=== PATIENT | female | born 1945 | race Caucasian/White ===

== ENCOUNTER 2016-09-16 09:10 | Emergency (ER) | payer BC, OTHER ==
[2016-09-16 09:20] VITALS: BP 175/89; BMI 33.3
--- NOTE | 2016-09-16 10:19 | DR.EXTPAIN ---
HPI - Time seen Time seen: 10:14 - PCP Primary Care Physician: ARELY - Complaint/Symptoms Chief Complaint Doctor Comments: Patient presents with complain of left foot pain for 1.5 weeks. She has been treated by her primary care physician with heat packs but w/o relief of pain. She states that she is on her feet eight hours daily working and she is unable to stand at this time. due to pain. Pain is sharp, duration 1.5 weeks, aggravated by pressure not relieved by present therapy Chief Complaint:: LEFT FOOT PAIN,DON'T KNOW WHAT HAPPENED. Self Treatment fo Chief Complaint: OTC AND PROPPPING UP - Source History Provided: Patient, Family Member - Mode of arrival Mode of Arrival: Ambulatory - Timing Onset of Chief Complaint: 09/10/16 PMH - PMH Past Medical History: Yes Past Medical History: Arthritis, CVA, Hypertension Past Surgical History: Yes Surgical History: Cholecystectomy, [employer]IST Surgery - Family History History of Family Medical Conditions: Yes Family Medical History: Cancer, Coronary Artery Disease, Heart Failure, Hypertension - Social History Does any household member use tobacco: Yes Alcohol Use: None Do you use any recreational Drugs:: No Lives With: Family Lives Where: Home - infectious screening In the last 2 months have you had wt loss of >10#?: NO Have you had fever, night sweats or hemotysis?: No Have you traveled outside the country in the last 6 months?: No Isolation: Standard ROS - Review of Systems Eyes: No Symptoms Reported ENTM: No Symptoms Reported Respiratoy: No Symptoms Reported Cardiovascular: No Symptoms Reported Gastrointestinal/Abdominal: No Symptoms Reported Genitourinary: No Symptoms Reported Neurological: No Symptoms Reported Musculoskeletal: Foot (left foot pain) Integumentary: No Symptoms Reported Hematologic/Lymphatic: No Symptoms Reported, See HPI Endocrine: No Symptoms Reported Psychiatric: No Symptoms Reported All Other Systems: Reviewed and Negative PE - Vital Signs Vitals: Temperature 98.1 F Pulse Rate 78 Respiratory Rate 20 Blood Pressure 175/89 O2 Sat by Pulse Oximetry 99 - General General Appearance: Alert, In No Apparent Distress - Head Head Exam: Normal Inspection, Atraumatic - Eyes Eye exam: Normal Appearance, PERRL, EOMI - ENT ENT Exam: Normal Exam, Normal Oropharynx - Neck Neck Exam: Normal Inspection, Full ROM - Chest Chest Inspection: Normal Inspection - Respiratory Respiratory Exam: Normal Lung Sounds Bilat Respiratory Exam: Bilateral Clear to Auscultation - Cardiovascular Cardiovascular Exam: Regular Rate, Normal Rhythm - Abdominal Exam Abdominal Exam: Normal Inspection, Normal Bowel Sounds Abdominal Tenderness: negative: RUQ, RLQ, LUQ, LLQ, Epigastrium, Suprapubic, Diffuse, Mild, Moderate, Severe, Other - Extremities Extremities Exam: Normal Inspection - Upper Extremities Shoulder Exam: Normal Inspection Arm Exam: Normal Inspection Elbow Exam: Normal Inspection Forearm Exam: Normal Inspection Hand Exam: Normal Inspection Neuromotor Exam: Normal Exam Neurosensory Exam: Normal Exam Hand Tendon Exam: Flexor Digitorium Profundus (Location) Upper Ext. Vascular Exam: Capillary Refill - Lower Extremities Hip/Pelvis Exam: Normal Inspection Upper Leg Exam: Normal Inspection Knee Exam: Normal Inspection Lower Leg Exam: Normal Inspection Ankle Exam: Normal Inspection Foot/Toe Exam: Tenderness (Lateral metarsalof left foot with swelling), Swelling Neurovascular/Tendon Exam: Normal Capillary Refill Gait Exam: Observed and Normal - Back Back Exam: Normal Inspection - Neurological Neurological Exam: Alert, Oriented X3, CN II-XII Intact - Psychiatric Psychiatric Exam: Normal Affect - Skin Skin Exam: Warm, Dry, Intact Type of Lesion: Rash Distribution: Generalized ROR - XRAY XRAY Interpreted by: Radiologist (Questionable cortical regularity along the neck of the distal 5th metatarsal bone which could represent a nondisplaced fracture or artifact. Recommend orthopedic followup. Moderate osteoarthritic changes throughout the digits which is most prominent along the 1st MTP joint with some mild soft tissue swelling just lateral to the joint. Mild soft tissue swelling and edema along the plantar aspect of the proximal foot.) - Diagnosis Discharge Problem: Osteoarthritis of ankle or foot Qualifiers: Laterality: left Qualified Code(s): M19.072 - Primary osteoarthritis, left ankle and foot - Discharge Plan Condition: Stable - Follow ups/Referrals Follow ups/Referrals: Nery MCGEE [Primary Care Provider] - 3 days - Instructions
[2016-09-16] MEDS ORDERED: TORADOL 60 MG VIAL IM ONE (10:22)
[2016-09-16] MEDS ORDERED: TORADOL 30 MG VIAL ONE (10:23)
--- NOTE | 2016-09-16 10:41 | RAD ---
HISTORY: Pain Study: Left foot series Comparison: None Findings: There is moderate joint space narrowing throughout the digits which is most prominent along the 1st MTP joint with soft tissue swelling lateral to the joint. There is some questionable subtle cortical regularity along the neck of the 5th metatarsal bone distally . The tarsal bones are intact. No ero sions are seen. There is mild soft tissue swelling along the plantar aspect of the proximal foot wit h no foreign body seen. No erosions are seen. IMPRESSION: Questionable cortical regularity along the neck of the distal 5th metatarsal bone which could repres ent a nondisplaced fracture or artifact. Recommend orthopedic followup. Moderate osteoarthritic changes throughout the digits which is most prominent along the 1st MTP join t with some mild soft tissue swelling just lateral to the joint. Mild soft tissue swelling and edema along the plantar aspect of the proximal foot . Reported By:
== END 2016-09-16 11:24 | disposition home or self-care (01) ==
LOC: ER 09:32
DX: M19.072 Primary osteoarthritis, left ankle and foot (principal); M79.89 Other specified soft tissue disorders
CPT/HCPCS: 29540; 73630; 96372; 99282; J1885

== ENCOUNTER 2016-12-12 00:46 | Emergency (ER) | payer BC, OTHER ==
[2016-12-12 00:51] VITALS: BP 157/90; BMI 33.8
[2016-12-12 01:18] LABS: BILIRUBIN,URINE NEGATIVE (NEGATIVE); BLOOD/HEMOGLOBIN,URINE 5+ (NEGATIVE); GLUCOSE, URINE NEGATIVE (NEGATIVE); KETONES,URINE NEGATIVE (NEGATIVE); LEUKOCYTE ESTERASE ,URINE 3+ (NEGATIVE); NITRITES,URINE POSITIVE (NEGATIVE); PH,URINE 6.5 (5.0 - 8.0); PROTEIN,URINE 3+ (NEGATIVE); UROBILINOGEN,URINE NORMAL (NORMAL)
--- NOTE | 2016-12-12 01:22 | DR.GENAD ---
HPI - PCP Primary Care Physician: ARELY ENAMORADO Comment HPI Comment: 70 y/o female complainig of dysuria, frequency and urgency for preceeding 7 days. She denies fever, chills or hematuria. She has no flank pain - Complaint/Symptoms Chief Complaint:: PT STATES, "I'VE BEEN HAVING TROULE WITH MY BLADDER FOR ABOUT 7 DAYS. I'M HAVING BURNING AND PRESSURE." Self Treatment fo Chief Complaint: OTC "URINARY RELIEF" - Nurses notes reviewed Nurses Notes Review: Yes - Source History Provided: Patient - Mode of Arrival Mode of Arrival: Ambulatory - Timing Onset of Chief Complaint: 12/05/16 PMH - PMH Past Medical History: Yes Past Medical History: Arthritis, CVA, Hypertension Past Surgical History: Yes Surgical History: Cholecystectomy, [employer] TEACHER Surgery - Family History History of Family Medical Conditions: Yes Family Medical History: Cancer, Coronary Artery Disease, Heart Failure, Hypertension - Social History Alcohol Use: None Do you use any recreational Drugs:: No Lives With: Alone Lives Where: Home - infectious screening In the last 2 months have you had wt loss of >10#?: NO Have you had fever, night sweats or hemotysis?: No Have you traveled outside the country in the last 6 months?: No Isolation: Standard ROS - Review of Systems Constitutional: No Symptoms Reported Eyes: No Symptoms Reported ENTM: No Symptoms Reported Respiratoy: No Symptoms Reported Cardiovascular: No Symptoms Reported Gastrointestinal/Abdominal: No Symptoms Reported Genitourinary: Dysuria, Frequency, Other (urgency) Neurological: No Symptoms Reported Musculoskeletal: No Symptoms Reported Integumentary: No Symptoms Reported Hematologic/Lymphatic: No Symptoms Reported Endocrine: No Symptoms Reported Psychiatric: No Symptoms Reported All Other Systems: Reviewed and Negative PE - Vital Signs Vitals: Temperature 97.9 F Pulse Rate 90 Respiratory Rate 20 Blood Pressure 157/90 O2 Sat by Pulse Oximetry 99 - General Limitations: No Limitations General Appearance: Alert, In No Apparent Distress - Head Head Exam: Normal Inspection - Eyes Eye exam: Normal Appearance, PERRL - ENT ENT Exam: Normal Exam External Ear Exam: Normal External Inspection - Neck Neck Exam: Normal Inspection, Full ROM - Chest Chest Inspection: Normal Inspection - Respiratory Respiratory Exam: Normal Lung Sounds Bilat - Cardiovascular Cardiovascular Exam: Regular Rate, Normal Rhythm - Abdominal Exam Abdominal Exam: Normal Inspection, Normal Bowel Sounds, Soft - Extremities Extremities Exam: Normal Inspection, Full ROM - Back Back Exam: Normal Inspection - Neurologic Neurological Exam: Alert, Oriented X3, CN II-XII Intact - Psychiatric Psychiatric Exam: Normal Affect, Normal Mood - Skin Skin Exam: Warm, Dry, Intact, Normal Color Course - Education/Counseling Education/Counseling: Patient Educated On: Treatment, Diagnosis, Needs for Follow Up ROR - Labs Reviewed Laboratory: Specimen Type Clean catch urine 12/12/16 01:08 Urine Color Yellow (YELLOW) 12/12/16 01:08 Urine Appearance Cloudy (CLEAR) 12/12/16 01:08 Urine pH 6.5 (5.0 - 8.0) 12/12/16 01:08 Ur Specific [place] 1.015 (1.000-1.030) 12/12/16 01:08 Urine Protein 3+ (NEGATIVE) 12/12/16 01:08 Urine Glucose (UA) Negative (NEGATIVE) 12/12/16 01:08 Urine Ketones Negative (NEGATIVE) 12/12/16 01:08 Urine Occult Blood 5+ (NEGATIVE) 12/12/16 01:08 Urine Nitrite Positive (NEGATIVE) 12/12/16 01:08 Urine Bilirubin Negative (NEGATIVE) 12/12/16 01:08 Urine Urobilinogen Normal (NORMAL) 12/12/16 01:08 Ur Leukocyte Esterase 3+ (NEGATIVE) 12/12/16 01:08 Urine RBC 30-40 /HPF (NEGATIVE) 12/12/16 01:08 Urine WBC Tntc /HPF (NEGATIVE) 12/12/16 01:08 Ur Squamous Epith Cells Negative /HPF (NEGATIVE) 12/12/16 01:08 Urine Bacteria 1+ /HPF (NEGATIVE) 12/12/16 01:08 Ur Culture Indicated? Yes/culture set up 12/12/16 01:08 - Diagnosis Discharge Problem: Lower urinary tract infection - Discharge Plan Disposition: HOME, SELF-CARE Condition: Stable - Follow ups/Referrals Follow ups/Referrals: Nery MCGEE [Primary Care Provider] - 3 days - Instructions
[2016-12-12 01:24] LABS: APPEARANCE,URINE CLOUDY (CLEAR); BACTERIA,URINE 1+ /HPF (NEGATIVE); COLOR,URINE YELLOW (YELLOW); RBC,URINE 30-40 /HPF (NEGATIVE); SQUAMOUS EPITHELIAL CELL,UR NEGATIVE /HPF (NEGATIVE)
[2016-12-12] MEDS ORDERED: PYRIDIUM PO ONE ×2 (01:30→01:31)
[2016-12-12] MEDS ORDERED: LEVAQUIN TAB 500 MG PO ONE (01:30)
[2016-12-12] MEDS ORDERED: LEVAQUIN TAB 500 MG ONE (01:31)
== END 2016-12-12 01:44 | disposition home or self-care (01) ==
LOC: ER 00:46
DX: N39.0 Urinary tract infection, site not specified (principal); B96.29 Other Escherichia coli [E. coli] as the cause of diseases classified elsewhere
CPT/HCPCS: 81001; 87086; 87088; 87186; 99282

== ENCOUNTER → 2017-01-23 | Outpatient (CLI) | payer BC, OTHER ==
--- NOTE | 2017-01-29 16:14 | MG ---
HISTORY: SCREENING Comparison: December 12, 2010 and December 07, 2015 FINDINGS: Bilateral CC and MLO projections of the right and left breast were obtained. Scattered fibroglandula r tissue is seen to be present without significant interval change. No suspicious architectural dist ortion, mass or clustered microcalcifications can be observed to suggest malignancy. No skin thicken ing or nipple retraction is appreciated. No pathological lymphadenopathy can be identified. Benign- appearing calcifications are noted within the right and left breast. IMPRESSION: NO RADIOGRAPHIC EVIDENCE OF MALIGNANCY. ACR CATEGORY 2 - benign findings. FOLLOW-UP EXAM 1 YEAR. Diagnostic CAD was utilized and reviewed. * 0 (ZERO) - ASSESSMENT INCOMPLETE; ADDITIONAL IMAGING IS NEEDED. * 1/1 (ONE) - NEGATIVE. * 2/II (TWO) - BENIGN FINDINGS. * 3/III (THREE) - PROBABLY BENIGN FINDING; SHORT INTERVAL FOLLOW-UP SUGGESTED. * 4/IV (FOUR) - SUSPICIOUS ABNORMALITY; BIOPSY SHOULD BE CONSIDERED. * 5/V - HIGHLY SUSPICIOUS OF MALIGNANCY; BIOPSY SHOULD BE PERFORMED. A NEGATIVE X-RAY REPORT SHOULD NOT DELAY BIOPSY IF A DOMINANT OR CLINICALLY SUSPICIOUS MASS IS PRESENT; 4 TO 8 PERCENT OF CANCERS ARE NOT IDENTIFIED BY X-RAY. A NEGA TIVE REPORT MAY REINFORCE THE CLINICAL IMPRESSION. ADENOSIS AND DENSE BREASTS MAY OBSCURE AN UNDERLY ING NEOPLASM. Reported By:
== END ==
LOC: RAD 15:32
PROVIDERS: ATTEND Internal Medicine
DX: Z12.31 Encounter for screening mammogram for malignant neoplasm of breast (principal)
CPT/HCPCS: 77067